=== PATIENT | female | born 1960 | race Asian ===

== ENCOUNTER 2023-11-14 13:09 | Day surgery (SDC) | payer OTHER ==
[~2023-11-14] VITALS: Ht 152.4 cm; Wt 46.0 kg
[~2023-11-14 13:09] MED LIST: FLUT.05NI; Hydrocodone-Ap1 EA20; Hydrocodone-Ap1 EA23 PO; LOSARTAN POTASS50 MG PO; LOSHYD PO; Lactated Ringer's 1,000 ML IV ONE; MEDR5 PO; PREMPRO PO; ZOLP5 PO; propofoL 50 ML IV ONE
[2023-11-14] MEDS ORDERED: LEVSOD25 (13:27)
[2023-11-14] MEDS ORDERED: ENFAMIL DHA-ARA59 ML (13:27)
[2023-11-14] MEDS ORDERED: FURO20 (13:28)
[2023-11-14] MEDS ORDERED: ROSU10TA (13:28)
[2023-11-14] MEDS ORDERED: POTA20LUD (13:28)
[2023-11-14] MEDS ORDERED: VITAMIN D310 MC4 (13:29)
[2023-11-14] MEDS ORDERED: ASPI81CH (13:29)
[2023-11-14] MEDS ORDERED: Lactated Ringer's 1,000 ML IV ONE (13:44)
[2023-11-14 14:54] VITALS: BP 108/82
== END 2023-11-14 14:59 | disposition home or self-care (01) ==
LOC: ORSCSDS 13:09
PROVIDERS: Surgery
PROC: 0DJD8ZZ Inspection of Lower Intestinal Tract, Via Natural or Artificial Opening Endoscopic (ICD-10-PCS; principal; 2023-11-14 14:15)
DX: Z12.11 Encounter for screening for malignant neoplasm of colon (principal); I25.10 Atherosclerotic heart disease of native coronary artery without angina pectoris; F17.210 Nicotine dependence, cigarettes, uncomplicated; Z79.82 Long term (current) use of aspirin; Z79.899 Other long term (current) drug therapy
CPT/HCPCS: J2704; J7120